=== PATIENT | female | born 1960 | race Caucasian/White ===

== ENCOUNTER 2016-06-07 22:36 | Observation (INO) | payer BC ==
[~2016-06-07] VITALS: Ht 167.6 cm; Wt 95.7 kg
--- NOTE | 2016-06-07 22:40 | NUR ---
Pt brought back immediately to bed 1 and triaged. EMT at bedside for EKG. Report given to MARTINA Albarran.
--- NOTE | 2016-06-07 22:40 | NUR ---
Pt speaking in full sentences, AOx3, states pain has started to decrease. Pt states pain 7/10 and non-radiating. VSS at this time.
[2016-06-07 22:43] VITALS: BP 145/88; PULSE 104; RESP 17; TEMP 98; O2SAT 100
--- NOTE | 2016-06-07 22:45 | NUR ---
Pt states that about an hour ago, she started having 10/10 sharp substernal chest pain. Non radiating. Pt stated that she started getting SOB and broke out in a sweat. Denies N and V. Pt last oral intake was meatloaf. Pt states she was lying down when it started. Will continue to monitor via station worker. No other injuries or complaints mentioned/noted.
--- NOTE | 2016-06-07 22:49 | NUR ---
Dr. Cummings at bedside to examine pt and discuss plan of care.
[2016-06-07] MEDS ORDERED: ASPIRIN 81 MG TAB.CHEW PO ONE (23:00)
[2016-06-07] MEDS ORDERED: METOPROLOL TARTRATE 25 MG TABLET PO ONE (23:00)
[2016-06-07] MEDS ORDERED: NITROGLYCERIN 1 INCH (GM) OINT. TD ONE (23:00)
[2016-06-07] MEDS ORDERED: MORPHINE 2 MG/ML INJ. SYRINGE IVP ONE (23:00)
[2016-06-07] MEDS ORDERED: NACL 0.9% 1,000 ML IV ONE (23:00)
--- NOTE | 2016-06-07 23:00 | NUR ---
# 20 gauge angiocath placed to L AC. Use of asceptic technique. Opsite placed over site. Blood return noted. Blood for lab drawn from site. Flushed with 10 cc of normal saline. No evidence of infiltration noted. Patient tolerated well.
[2016-06-07 23:17] LABS: BASOPHILS % (AUTO) 0.5 % (0.0-2.0); CREATININE 1.02 mg/dL (0.55-1.30); EOSINOPHILS # (AUTO) 0.2 K/uL (0.0-0.4); EOSINOPHILS % (AUTO) 2.5 % (0.0-4.0); HEMATOCRIT 34.9 % (36-48); HEMOGLOBIN 11.1 g/dL (12.0-16.0); LYMPHOCYTES # (AUTO) 1.4 K/uL (1.0-5.5); LYMPHOCYTES % (AUTO) 20.3 % (20.5-51.5); MEAN CORPUSCULAR HEMOGLOBIN 25 pg (27-31); MEAN CORPUSCULAR HGB CONC 32 % (32-36); MEAN CORPUSCULAR VOLUME 80 fL (79.0-98.0); MONOCYTES # (AUTO) 0.5 K/uL (0.0-1.0); MONOCYTES % (AUTO) 6.6 % (1.7-9.3); NEUTROPHILS # (AUTO) 4.8 K/uL (1.8-7.7); NEUTROPHILS % (AUTO) 70.1 % (40.0-70.0); PLATELET COUNT (AUTO) 251 K/uL (130-430); RED BLOOD CELL COUNT(AUTO) 4.35 MIL/uL (4.2-6.2); RED CELL DISTRIBUTION WIDTH 16.5 % (9.0-15.0); WHITE BLOOD COUNT (AUTO) 6.9 K/uL (4.8-10.8)
[2016-06-07 23:22] LABS: ALBUMIN 3.8 g/dL (3.4-4.8); TOTAL BILIRUBIN 0.3 mg/dL (0.0-1.0); TOTAL PROTEIN, SERUM 7.5 g/dL (6.4-8.3)
[2016-06-07 23:24] LABS: INR 0.9 (0.8-1.2); PROTHROMBIN TIME 9.6 SECS (9.5-12.5)
[2016-06-08] MEDS ORDERED: TOP25 PO (00:09)
[2016-06-08] MEDS ORDERED: OMEP20TA20 PO (00:09)
[2016-06-08] MEDS ORDERED: BUPR100T13 PO (00:09)
[2016-06-08] MEDS ORDERED: CLOP75TA2 PO (00:09)
[2016-06-08] MEDS ORDERED: NITROGLYCERIN 0.4 MG TAB.SUBL SL ONE (01:00)
--- NOTE | 2016-06-08 01:30 | NUR ---
Patient will be admitted to care of Dr. Ramirez. Admitted to Telemetry unit. Will go to room 117B. Summary report printed. Report given to admitting RN.
--- NOTE | 2016-06-08 01:46 | NUR ---
ADMISSION NOTE Received patient from ER via gurney. Patient admitted with diagnosis of CHEST PAIN. Patient is awake, alert, oriented X 4. Patient oriented to hospital room, call light, toileting, pain management and safety-teach back done. Patient informed that ASIM MACK will be her nurse and that their room number [id number]. Personal belongings checked and Belongings List documented. Call light within reach.
--- NOTE | 2016-06-08 01:50 | NUR ---
INITIAL NOTE PT. RECEIVED AAOX4, NO S/S OF SOB OR DISTRESS NOTED. PT. STATES SHE HAS PAIN 4/10, BUT THAT IT HAS IMPROVED SINCE HER ARRIVAL TO ER. VSS. IV ACCESS NOTED TO LEFT AC, NO REDNESS OR SWELLING AT THE SITE. WILL CONTINUE TO MONITOR FOR CHANGES. SAFETY AND FALL PRECAUTIONS IN PLACE. CALL LIGHT IN REACH.
[2016-06-08 01:51] VITALS: BP 117/67; PULSE 68; RESP 20; TEMP 97.6; O2SAT 98
--- NOTE | 2016-06-08 02:23 | NUR ---
CONSULTATION PAGED REASON FOR CONSULTATION:CHEST PAIN WAS CONSULT CALLED?Y PERSON WHO WAS NOTIFIED:[employer] ENTRY LEVEL FINANCE #22 CONSULTING PHYSICIAN:GALILEO JONES CLASSIFYING MACHINE OPERATOR SPECIALTY:CARDIO CLASSIFYING MACHINE OPERATOR PHONE NUMBER:[phone]
--- NOTE | 2016-06-08 04:00 | NUR ---
ROUNDS PT. RESTING IN BED WITH EYES CLOSED. NO S/S OF SOB OR DISTRESS NOTED. NO FACIAL GRIMACING INDICATING PAIN. WILL CONTINUE TO MONITOR FOR ANY CHANGES, SAFETY AND FALL PRECAUTIONS IN PLACE. CALL LIGHT IN REACH.
--- NOTE | 2016-06-08 06:32 | NUR ---
CLOSING NOTE PT. RESTING IN BED WITH TV ON. NO S/S OF SOB OR DISTRESS. PT. STATES PAIN HAS IMPROVED. 05/26. ALL NECESSARY NEEDS WERE MET. SAFETY AND FALL PRECAUTIONS WERE MAINTAINED. WILL ENDORSE CARE TO AM NURSE. CALL LIGHT IN REACH, BED IN LOWEST LOCKED POSITION.
[2016-06-08 08:00] VITALS: BP 111/55; PULSE 70; RESP 17; TEMP 97.2; O2SAT 100
--- NOTE | 2016-06-08 08:20 | NUR ---
AM ROUNDS Late entry due to patient care. Patient received, alert awake and oriented x4. VSS. Patient denies pain and SOB at this time. Respirations even and unlabored. surveillance monitor in place, rhythm noted. IV site patent and intact. Patient tolerated breakfast well. Plan of care discussed, patient verbalized understanding. No further needs at this time. Encouraged patient to call for assistance, patient verbalized understanding. Safety and fall precautions in place, call light within reach. Will continue to monitor.
[2016-06-08] MEDS ORDERED: TOPIRAMATE 25 MG TABLET(TOPAMAX) PO SCH (09:00)
[2016-06-08] MEDS ORDERED: ASPIRIN 81 MG TAB.CHEW PO SCH (09:00)
[2016-06-08] MEDS ORDERED: METOPROLOL TARTRATE 25 MG TABLET PO SCH (09:00)
[2016-06-08] MEDS ORDERED: ENOXAPARIN SODIUM 40 MG/0.4 ML SYRINGE SUBCUT SCH (09:00)
[2016-06-08] MEDS ORDERED: buPROPion HCL 100 MG TABLET PO SCH (09:00)
[2016-06-08] MEDS ORDERED: CLOPIDOGREL BISULFATE 75 MG TABLET PO SCH (09:00)
[2016-06-08] MEDS ORDERED: OMEPRAZOLE 20 MG CAPSULE.DR (PriLOSEC) PO SCH (09:00)
--- NOTE | 2016-06-08 10:19 | NUR ---
CALLED ATTENDING MD DR RIZVI, RE: MEDICATION ORDERS. SPOKE TO ISABELLE
--- NOTE | 2016-06-08 10:30 | NUR ---
ROUNDS Patient states 09/25 non radiating chest pain. Denies SOB at this time. Dr. Ashley ramírez. Awaiting call back. Educated patient on relaxation techniques, patient verbalized understanding. No further questions. Will continue to monitor. Addendum: 06/08/16 at 1101 by Kathy Henriquez RN Medication given as indicated. Patient denies chest pain at this time. MD [place].
--- NOTE | 2016-06-08 10:47 | NUR ---
CALLED DR RIZVI THE 2ND TIME. SPOKE TO HEENA
--- NOTE | 2016-06-08 11:00 | NUR ---
MD Dr. Ortiz at bedside, new orders noted.
--- NOTE | 2016-06-08 12:23 | NUR ---
ROUNDS Dr. Higuera at bedside. Patient denies chest pain and SOB at this time. No further needs. Will continue to monitor. Lunch at bedside. Safety and fall precautions in place, call light within reach.
[2016-06-08 12:36] VITALS: BP 122/84; PULSE 60; RESP 16; TEMP 98; O2SAT 98
[2016-06-08 13:04] VITALS: BP 122/84; PULSE 60; RESP 16; TEMP 98; O2SAT 98
--- NOTE | 2016-06-08 14:06 | NUR ---
ROUNDS Patient awaiting discharge at this time. Denies SOB and pain. Patient educated on medication management and transitional care instructions, notified pharmacy to follow up. Patient has no further questions at this time. Will continue to monitor.
--- NOTE | 2016-06-08 16:16 | NUR ---
D/C Patient Patient given medication reconciliation form and D/C instructions. Exit Care provided. Patient verbalized understanding. MD discussed with patient the results and treatment provided. Ambulatory with steady gait for discharge to home. Patient in stable condition, ID band removed. IV catheter removed, intact and dressing applied, no active bleeding. Rx of Eliquis given. Patient educated on pain and medication management. All belongings sent with patient.
[2016-06-08 16:29] VITALS: BP 122/93; PULSE 76; RESP 16; TEMP 97.5; O2SAT 99
--- NOTE | 2016-06-20 10:11 | NUR ---
Discharge Follow Up Phone Call Opening Machine Cleaner phoned patient,[phone], on 06/15/16, 06/19/16 and 06/20/16 and left voicemail messages with offer of assistance and Social Service contact information. No further calls will be made.
== END 2016-06-08 16:15 | disposition home or self-care (01) ==
LOC: SED 22:36 → STU 06-08 00:58
DX: R07.9 Chest pain, unspecified (principal); R74.8 Abnormal levels of other serum enzymes; Z86.73 Personal history of transient ischemic attack (TIA), and cerebral infarction without residual deficits; Z95.0 Presence of cardiac pacemaker; Z85.42 Personal history of malignant neoplasm of other parts of uterus
CPT/HCPCS: 36415 ×2; 71010; 80053; 83880; 84484 ×2; 85025; 85379; 85610; 85730; 87081; 88305; 88312; 88313; 93005; 93306; 93970; 96361 ×2; 96372; 96374; 99285; G0378; J1650; J2270; J7030

== ENCOUNTER 2016-08-05 11:26 | Emergency (ER) | payer BC ==
[~2016-08-05] VITALS: Ht 167.6 cm; Wt 98.9 kg
[~2016-08-05 11:26] MED LIST: BUPR100T13 PO; CLOP75TA2 PO; OMEP20TA20 PO; TOP25 PO
[2016-08-05 11:32] VITALS: BP 153/73; PULSE 90; RESP 15; TEMP 98.2; O2SAT 98
--- NOTE | 2016-08-05 11:37 | NUR ---
ambulated to bed 4
--- NOTE | 2016-08-05 11:40 | NUR ---
Dr. Cordon at bedside examinings the pt.
--- NOTE | 2016-08-05 11:45 | NUR ---
Pt. to ER AAOx4 walked into ER for left foot and ankle swelling. As per pt. she woke up on with swollen foot, denies injury to site, states pain 12/26, states went to urgent care yesterday was given a prescription of Blackwood 10, states she took Blackwood last night and this morning at 0600 ineffective, denies CP denies SOB
--- NOTE | 2016-08-05 11:55 | NUR ---
X Ray at bedside
[2016-08-05] MEDS ORDERED: KETOROLAC TROMETHAMINE 60 MG/2 ML VIAL IM ONE (12:00)
[2016-08-05 12:15] LABS: BASOPHILS % (AUTO) 0.1 % (0.0-2.0); HEMATOCRIT 35.2 % (36-48); HEMOGLOBIN 11.2 g/dL (12.0-16.0); LYMPHOCYTES # (AUTO) 0.7 K/uL (1.0-5.5); MEAN CORPUSCULAR HEMOGLOBIN 25 pg (27-31); MEAN CORPUSCULAR HGB CONC 32 % (32-36); MEAN CORPUSCULAR VOLUME 79 fL (79.0-98.0); MONOCYTES # (AUTO) 0.6 K/uL (0.0-1.0); NEUTROPHILS # (AUTO) 6.9 K/uL (1.8-7.7); NEUTROPHILS % (AUTO) 84.9 % (40.0-70.0); PLATELET COUNT (AUTO) 279 K/uL (130-430); RED BLOOD CELL COUNT(AUTO) 4.45 MIL/uL (4.2-6.2); RED CELL DISTRIBUTION WIDTH 16.5 % (9.0-15.0); WHITE BLOOD COUNT (AUTO) 8.2 K/uL (4.8-10.8)
[2016-08-05 12:28] LABS: CALCIUM 9.6 mg/dL (8.4-11.0)
[2016-08-05 12:30] LABS: ALBUMIN 3.7 g/dL (3.4-4.8); TOTAL BILIRUBIN 0.2 mg/dL (0.0-1.0); TOTAL PROTEIN, SERUM 7.7 g/dL (6.4-8.3); URIC ACID 3.5 mg/dL (2.4-7.0)
--- NOTE | 2016-08-05 12:31 | NUR ---
RECEIVED PATIENT ON BED READING A BOOK.COMPLAINING OF 5/10 TO LEFT FOOT;SLIGHT SWELLING AND REDNESS TO LEFT FOOT NOTED.NO OTHER COMPLAIN/INJURIES PER PATIENT OR NOTED
--- NOTE | 2016-08-05 13:56 | NUR ---
Patient given written and verbal discharge instructions and verbalizes understanding. ER MD discussed with patient the results and treatment provided. Patient in stable condition. ID arm band removed. Rx of Ibuprofen given. Patient educated on pain management and to follow up with PMD. Pain 2/10 Scale . Opportunity for questions provided and answered.
[2016-08-05 13:59] VITALS: BP 150/74; PULSE 87; RESP 17; TEMP 98.1; O2SAT 99
== END 2016-08-05 13:59 | disposition home or self-care (01) ==
LOC: SED 11:26
DX: M25.572 Pain in left ankle and joints of left foot (principal); R60.9 Edema, unspecified; M79.89 Other specified soft tissue disorders; Z86.73 Personal history of transient ischemic attack (TIA), and cerebral infarction without residual deficits; Z85.42 Personal history of malignant neoplasm of other parts of uterus; Z95.0 Presence of cardiac pacemaker; Z90.49 Acquired absence of other specified parts of digestive tract
CPT/HCPCS: 36415; 73610; 80053; 84550; 85025; 85379; 93971; 96372; 99285; J1885

== ENCOUNTER 2017-05-26 12:38 | Emergency (ER) | payer BC ==
[~2017-05-26] VITALS: Ht 170.2 cm; Wt 86.2 kg
[~2017-05-26 12:38] MED LIST changes: -CLOP75TA2 PO
[2017-05-26 13:06] VITALS: BP_SYST 139
--- NOTE | 2017-05-26 15:00 | NUR ---
Patient told registration that she is leaving without being seen.
== END 2017-05-26 15:00 | disposition left against medical advice (07) ==
LOC: SED 12:38
DX: M79.671 Pain in right foot (principal); Z53.21 Procedure and treatment not carried out due to patient leaving prior to being seen by health care provider
CPT/HCPCS: 99281

== ENCOUNTER 2018-03-11 10:44 | Emergency (ER) | payer BC ==
[~2018-03-11] VITALS: Ht 167.6 cm; Wt 86.2 kg
[2018-03-11 10:50] VITALS: BP_SYST 110
[2018-03-11] MEDS ORDERED: FOLIC ACID 1 MG, THIAMINE HCL 100 MG, MAGNESIUM SULFATE 1 GM, MVI 10 ML in NACL 0.9% 1,... IV ONE (11:00)
--- NOTE | 2018-03-11 11:00 | NUR ---
Pt moved from Hallway to ER bed 3.
--- NOTE | 2018-03-11 11:01 | NUR ---
ER Dr. Ospina at bedside examining patient.
--- NOTE | 2018-03-11 11:05 | NUR ---
Pt brought into by [facility], for EtOH intoxication. Pt states she "occasionally" drinks alcohol and had vodka today. Pt report finishing chemotherapy 8 weeks ago for esophageal cancer. Otherwise, pt denies LOC, chest pain, abdominal pain, fever, chills, nausea, vomiting or any other complaints.
--- NOTE | 2018-03-11 11:10 | NUR ---
PHARMACY CONTACTED FOR BANANA BAG.
[2018-03-11 11:47] LABS: BASOPHILS % (AUTO) 0.6 % (0.0-2.0); EOSINOPHILS % (AUTO) 0.4 % (0.0-4.0); HEMATOCRIT 45.3 % (36-48); HEMOGLOBIN 15.2 g/dL (12.0-16.0); LYMPHOCYTES # (AUTO) 1.3 K/uL (1.0-5.5); LYMPHOCYTES % (AUTO) 21.7 % (20.5-51.5); MEAN CORPUSCULAR HEMOGLOBIN 34 pg (27-31); MEAN CORPUSCULAR HGB CONC 34 % (32-36); MEAN CORPUSCULAR VOLUME 101 fL (79.0-98.0); MONOCYTES # (AUTO) 0.4 K/uL (0.0-1.0); MONOCYTES % (AUTO) 7.3 % (1.7-9.3); NEUTROPHILS # (AUTO) 4.1 K/uL (1.8-7.7); PLATELET COUNT (AUTO) 226 K/uL (130-430); RED BLOOD CELL COUNT(AUTO) 4.49 MIL/uL (4.2-6.2); RED CELL DISTRIBUTION WIDTH 12.3 % (9.0-15.0); WHITE BLOOD COUNT (AUTO) 5.8 K/uL (4.8-10.8)
[2018-03-11 11:59] LABS: ANION GAP 10 (5-15); CALCIUM 8.6 mg/dL (8.4-11.0); CHLORIDE 111 mmol/L (98-107); CREATININE 0.76 mg/dL (0.55-1.30); GLUCOSE 94 mg/dL (70-99); INR 0.9 (0.8-1.2); POTASSIUM 3.8 mmol/L (3.5-5.1); PROTHROMBIN TIME 8.9 SECS (9.5-12.5); SODIUM SERUM 143 mmol/L (136-145); UREA NITROGEN, BLOOD 13 mg/dL (8-21)
[2018-03-11 12:03] LABS: ALANINE AMINOTRANSFERASE 21 U/L (12-78); ALBUMIN 3.6 g/dL (3.4-4.8); ALCOHOL, BLOOD 251 mg/dL (<10); AMYLASE 71 U/L (0-100); ASPARTATE AMINOTRANSFERASE 14 U/L (10-37); LIPASE 272 U/L (73-393); TOTAL BILIRUBIN 0.1 mg/dL (0.0-1.0)
[2018-03-11 12:17] LABS: ACETAMINOPHEN < 1 ug/mL (1-30); GFR AFRICAN AMERICAN 101 mL/min (>90)
--- NOTE | 2018-03-11 12:25 | NUR ---
# 22 gauge angiocath placed to LAC. Use of asceptic technique. Opsite placed over site. Blood return noted. Flushed with 10 cc of normal saline. No evidence of infiltration noted. Patient tolerated well.
[2018-03-11 12:42] LABS: BILIRUBIN,URINE NEGATIVE (NEGATIVE); BLOOD, URINE NEGATIVE (NEGATIVE); CLARITY/URINE CLEAR (CLEAR); COLOR,URINE YELLOW (YELLOW); GLUCOSE,URINE NEGATIVE (NEGATIVE); KETONES,URINE NEGATIVE (NEGATIVE); LEUKOCYTE ESTERASE ,URINE NEGATIVE (NEGATIVE); NITRITE, URINE NEGATIVE (NEGATIVE); PH,URINE 5.5 (5.0-8.0); PROTEIN URINE NEGATIVE (NEGATIVE); UROBILINOGEN,URINE 0.2 (0.2-1.0)
[2018-03-11 13:00] LABS: BARBITURATE, URINE NEGATIVE (NEG <=200); BENZODIAZEPINE, URINE NEGATIVE (NEG <=150); CANNABINOID, URINE NEGATIVE (NEG <=50); COCAINE, URINE NEGATIVE (NEG <=150); METHAMPHETAMINES SCREEN,URINE NEGATIVE (NEG <=500); OPIATE, URINE NEGATIVE (NEG <=100); PHENCYCLIDINE SCREEN,URINE NEGATIVE (NEG <=25); UR TRICYCLIC ANTIDEPRESSANTS NEGATIVE (NEG <=300); URINE AMPHETAMINE NEGATIVE (NEG <=500); URINE METHADONE NEGATIVE (NEG <=200); URINE OXYCODONE SCREEN NEGATIVE (NEG <=100); URINE PROPOXYPHENE SCREEN NEGATIVE (NEG <=300)
--- NOTE | 2018-03-11 13:30 | NUR ---
PT RESTING ON GURNEY W/ FAMILY AT BEDSIDE, NO SIGNS OF ACUTE DISTRESS, WILL CONTINUE TO MONITOR.
[2018-03-11] MEDS ORDERED: D5/0.45 NS 1,000 ML IV ONE (13:45)
[2018-03-11] MEDS ORDERED: LORazepam 2 MG/ML VIAL IVP PRN (13:45)
--- NOTE | 2018-03-11 14:30 | NUR ---
PT RESTING ON GURNEY W/ FAMILY AT BEDSIDE, NO SIGNS OF ACUTE DISTRESS, WILL CONTINUE TO MONITOR.
[2018-03-11 15:20] VITALS: BP_SYST 110
== END 2018-03-11 15:20 | disposition home or self-care (01) ==
LOC: SED 10:44 → UNDOADMIN 13:37 → STU 13:37 → SED 15:20
DX: F10.129 Alcohol abuse with intoxication, unspecified (principal); R03.0 Elevated blood-pressure reading, without diagnosis of hypertension; Z86.73 Personal history of transient ischemic attack (TIA), and cerebral infarction without residual deficits; Z95.0 Presence of cardiac pacemaker; Z85.42 Personal history of malignant neoplasm of other parts of uterus; Z85.01 Personal history of malignant neoplasm of esophagus; Z79.899 Other long term (current) drug therapy; Y90.8 Blood alcohol level of 240 mg/100 ml or more
CPT/HCPCS: 36415; 71045; 80053; 80307; 81003; 82150; 82550; 83690; 83880; 84484; 85025; 85610; 85730; 93005; 96365; 96366; 99284; G0480; G0481; G0482; J3411; J3475; J3490; J7030